=== PATIENT | female | born 2000 | race Native Hawaiian/Other Pacific Islander ===

== ENCOUNTER 2018-10-02 09:33 | Emergency (ER) | payer OTHER ==
[~2018-10-02] VITALS: Ht 152.4 cm; Wt 61.2 kg
[2018-10-02] MEDS ORDERED: IBUP-359 PO (09:42)
[2018-10-02] MEDS ORDERED: methylPREDNISolone INJ 125 MG/2 ML VIAL (J2930) IV ONE (10:15)
[2018-10-02] MEDS ORDERED: FAMOTIDINE IV BAG 20 MG in APPROPRIATE DILUENT 1 EA IV ONE (10:15)
[2018-10-02] MEDS ORDERED: PRED20TA PO (13:07)
[2018-10-02 13:26] VITALS: BP 122/85
== END 2018-10-02 13:29 | disposition home or self-care (01) ==
LOC: M ED 09:33
DX: R22.0 Localized swelling, mass and lump, head (principal); H05.223 Edema of bilateral orbit; T78.3XXA Angioneurotic edema, initial encounter; T39.315A Adverse effect of propionic acid derivatives, initial encounter; Z88.8 Allergy status to other drugs, medicaments and biological substances
CPT/HCPCS: 96365; 96366; 96375; 99284; J2930

== ENCOUNTER 2019-08-15 11:59 | Emergency (ER) | payer OTHER ==
[~2019-08-15] VITALS: Ht 152.4 cm; Wt 62.1 kg
[~2019-08-15 11:59] MED LIST: IBUP-359 PO; PRED20TA PO
[2019-08-15] MEDS ORDERED: EXCETAB33 PO (12:05)
[2019-08-15] MEDS ORDERED: FAMOTIDINE INJ 20MG/2ML VIAL (S0028) IVP ONE (12:30)
[2019-08-15] MEDS ORDERED: methylPREDNISolone INJ 125 MG/2 ML VIAL (J2930) IV ONE (12:30)
[2019-08-15] MEDS ORDERED: NS 1,000 ML IV ONE (12:30)
[2019-08-15] MEDS ORDERED: MEDR4PAK PO (14:32)
[2019-08-15] MEDS ORDERED: EPIP0.3I2 IM (14:32)
[2019-08-15 14:39] VITALS: BP 117/71
== END 2019-08-15 14:46 | disposition home or self-care (01) ==
LOC: M ED 11:59
DX: T50.995A Adverse effect of other drugs, medicaments and biological substances, initial encounter (principal); Y92.9 Unspecified place or not applicable; Y93.9 Activity, unspecified; Z88.8 Allergy status to other drugs, medicaments and biological substances; Z88.6 Allergy status to analgesic agent
CPT/HCPCS: 94760; 96361; 96374; 96375; 99284; J2930